=== PATIENT | female | born 1995 | race Caucasian/White ===

== ENCOUNTER 2018-04-12 22:41 | Observation (INO) ==
[2018-04-12] MEDS ORDERED: KETOROLAC TROMETHAMINE 15 MG/ML VIAL IV STA (22:51)
[2018-04-12] MEDS ORDERED: SODIUM CHLORIDE 0.9% 1000ML 1,000 ML IV SCH (23:00)
[2018-04-12 23:12] LABS: Basophils # (auto) 0.02 K/uL (0-0.2); Basophils % (auto) 0.1 %; Eosinophils # (auto) 0.06 K/uL (0-0.5); Eosinophils % (auto) 0.4 %; Hematocrit (blood only) 40.6 % (37-47); Hemoglobin 13.4 g/dL (12.0-16.0); Immature Granulocytes # (auto) 0.04 K/uL (0.00-0.02); Immature Granulocytes % (auto) 0.3 %; Lymphocytes % (auto) 17.4 %; Mean Corpuscular Volume 92.7 fL (80-100); Mean Platelet Volume 10.6 fL (7.4-10.4); Monocytes # (auto) 1.36 K/uL (0.11-0.59); Monocytes % (auto) 9.1 %; Neutrophils # (auto) 10.89 K/uL (1.4-6.5); Neutrophils % (auto) 72.7 %; Platelet Count 241 K/uL (130-400); RDW Standard Deviation 43.9 fL (36.4-46.3); Red Blood Count 4.38 M/uL (4.2-5.4); White Blood Count 14.97 K/uL (4.8-10.8)
[2018-04-12 23:15] LABS: Appearance Urine Turbid (Clear); Bacteria Urine Automated 2+ (Negative); Bilirubin Urine Negative (Negative); Color Urine Yellow; Epithelial Cell Urine Auto >30 /lpf (0-5); Glucose Urine UA Negative (Negative); Ketones Urine Trace (Negative); Leukocyte Esterase Urine 2+ (Negative); Nitrite Urine Negative (Negative); Protein Urine Trace (Negative); Urobilinogen Urine Negative (Negative); WBC Urine Automated >30 /hpf (0-5); pH Urine 5.5 (4.5-7.5)
--- NOTE | 2018-04-12 23:19 | Emergency Department Note ---
History of Present Illness General Chief complaint: Back Injury/Pain Stated complaint: FELL IN SNOW, RT SIDE UPPER BACK PAIN History of Present Illness Maximum Pain Intensity: 7 This 22-year-old presents to the ER complaining of right flank pain and urinary symptoms Location: Abdomen Quality: Aching Severity: Moderate Duration: Past week Timing: Started a week ago Context: Pain persisted and patient came in Modifying factors: better with nothing; worse with movement Patient also complains of urinary symptoms. Patient denies abdominal pain, chest pain, dyspnea, fevers, vomiting, vaginal itching or discharge or vaginal complaints. Home Medications Home Medications Medication Instructions Recorded Confirmed Type No Known Home Medications 04/12/18 04/12/18 History Allergies Allergy/AdvReac Type Severity Reaction Status Date / Time No Known Allergies Allergy Unverified 04/12/18 23:52 Past Med/Surg History Medical History No acute medical problems Social History Feels Safe at Home: Yes Smoking Status: Former smoker Review of Systems All systems reviewed & are unremarkable except as noted in HPI & below Physical Exam Vital Signs Vital Signs - 24 hr 04/12/18 22:43 04/13/18 00:12 Temperature 36.9 C Temperature Source Oral Sepsis Action Taken by Nursing No Action Required Pulse Rate 83 Pulse Rate [Finger] 76 Respiratory Rate 20 18 Respiratory Effort / Characteristics Non-Labored Non-Labored Respiratory Depth Normal Normal Blood Pressure 131/80 Blood Pressure [Right Arm] 113/92 Blood Pressure Mean 97 Blood Pressure Mean [Right Arm] 99 Pulse Oximetry 98 100 Oxygen Delivery Method Room Air Room Air VITALS: Vitals are noted on the nurse's note and reviewed by myself. Vital signs stable. GENERAL: Pleasant female, in no acute distress, nondiaphoretic, well-developed well-nourished. SKIN: The skin was without rashes, erythema, edema, or bruising. There is no tenting of the skin. Capillary reflex less than 2 seconds. HEAD: Normocephalic atraumatic. EARS: External auditory canals clear EYES: Pupils equal round and reactive to light and accommodation. Conjunctivae without injection, sclerae without icterus. Extraocular movements intact. NOSE: Patent, turbinates without inflammation or discharge. MOUTH: Mucous membranes moist. Pharynx without erythema or exudate. Uvula midline. Airway patent. Tongue does not deviate. NECK: Supple without nuchal rigidity. No lymphadenopathy. No thyromegaly. Cervical spine is nontender. No JVD. HEART: Regular rate and rhythm without murmurs gallops or rubs. LUNGS: Clear to auscultation bilaterally without wheezes, rales or rhonchi. No retractions or accessory muscle use. ABDOMEN: Positive bowel sounds x 4. Normal tympanic percussion. Soft, nontender, without masses or organomegaly. Shell sign negative. No guarding or rebound tenderness. Right CVA tenderness MUSCULOSKELETAL: No muscle atrophy, erythema, or edema noted. NEURO: Patient was alert and oriented to person place and time. Normal sensation to light and sharp touch. No focal neurological deficits. Course Administered Medications Ioversol (Optiray 320 100ml) 100 ml IV ONCE PRN PRN Reason: Interaction Checking Stop: 04/17/18 00:49 Last Admin: 04/13/18 00:51 Dose: 93 ml Discontinued Medications Sodium Chloride (Nss 1000ml) 1,000 mls @ 999 mls/hr IV .Q1H1M ANDRES Stop: 04/13/18 00:00 Last Infusion: 04/13/18 00:12 Dose: 0 mls/hr Admin: 04/12/18 23:08 Dose: 999 mls/hr Ceftriaxone Sodium (Rocephin) 1,000 mg in 50 mls @ 100 mls/hr IV NOW STA Stop: 04/12/18 23:54 Last Infusion: 04/13/18 00:12 Dose: 0 mls/hr Admin: 04/12/18 23:46 Dose: 100 mls/hr Ketorolac Tromethamine (Toradol) 10 mg IV NOW STA Stop: 04/12/18 22:52 Last Admin: 04/12/18 23:08 Dose: 10 mg Morphine Sulfate (Morphine Sulfate) 4 mg IV NOW STA Stop: 04/13/18 00:04 Last Admin: 04/13/18 00:08 Dose: 4 mg Ondansetron HCl (Zofran) 4 mg IV NOW STA Stop: 04/13/18 00:04 Last Admin: 04/13/18 00:08 Dose: 4 mg Medical Decision Making Medical Records Attestation: I reviewed the patient's medical records. Home Medications Current Medication List: was personally reviewed by me Laboratory Data Attestation: I reviewed the patient's lab results. Result diagrams: 04/12/18 22:50 04/12/18 22:50 Lab Results 04/12/18 04/12/18 04/12/18 Range/Units 22:50 22:50 23:00 WBC 14.97 H (4.8-10.8) K/uL RBC 4.38 (4.2-5.4) M/uL Hgb 13.4 (12.0-16.0) g/dL Hct 40.6 (37-47) % MCV 92.7 (80-100) fL MCH 30.6 (25-34) pg MCHC 33.0 (32-36) g/dL RDW Std Deviation 43.9 (36.4-46.3) fL RDW Coeff of Woo 13.0 (11.5-14.5) % Plt Count 241 (130-400) K/uL MPV 10.6 H (7.4-10.4) fL Immature Gran % (Auto) 0.3 % Neut % (Auto) 72.7 % Lymph % (Auto) 17.4 % [place] % (Auto) 9.1 % Eos % (Auto) 0.4 % Baso % (Auto) 0.1 % Immature Gran # (Auto) 0.04 H (0.00-0.02) K/uL Neut # (Auto) 10.89 H (1.4-6.5) K/uL Lymph # (Auto) 2.60 (1.2-3.4) K/uL [place] # (Auto) 1.36 H (0.11-0.59) K/uL Eos # (Auto) 0.06 (0-0.5) K/uL Baso # (Auto) 0.02 (0-0.2) K/uL Sodium 138 (136-145) mmol/L Potassium 3.7 (3.5-5.1) mmol/L Chloride 104 (98-107) mmol/L Carbon Dioxide 26 (21-32) mmol/L Anion Gap 8.0 (3-11) BUN 10 (7-18) mg/dl Creatinine 1.06 (0.6-1.2) mg/dl Est Cr Clr Drug Dosing 75.5 ml/min Est GFR ( Amer) 86.9 Est GFR (Non-Af Amer) 75.0 BUN/Creatinine Ratio 9.1 L (10-20) Glucose 92 (70-99) mg/dl Calcium 8.8 (8.5-10.1) mg/dl Total Bilirubin 0.5 (0.2-1) mg/dl AST 15 (15-37) U/L ALT 18 (12-78) U/L Alkaline Phosphatase 91 (45-117) U/L Total Protein 7.6 (6.4-8.2) gm/dl Albumin 4.1 (3.4-5.0) gm/dl Globulin 3.5 (2.5-4.0) gm/dl Albumin/Globulin Ratio 1.2 (0.9-2) Lipase 134 (73-393) U/L Urine Color Urine Appearance (Clear) Urine pH (4.5-7.5) Ur Specific [place] (1.000-1.030) Urine Protein (Negative) Urine Glucose (UA) (Negative) Urine Ketones (Negative) Urine Blood (Negative) Urine Nitrite (Negative) Urine Bilirubin (Negative) Urine Urobilinogen (Negative) Ur Leukocyte Esterase (Negative) Urine WBC (Auto) (0-5) /hpf Urine RBC (Auto) (0-4) /hpf U Hyaline Cast (Auto) (0-5) /lpf U Epithel Cells (Auto) (0-5) /lpf Urine Bacteria (Auto) (Negative) Urine Crystals Calcium Oxalate Crystal (None Prsent) POC Ur Test NEG (NEG) 04/12/18 Range/Units 23:00 WBC (4.8-10.8) K/uL RBC (4.2-5.4) M/uL Hgb (12.0-16.0) g/dL Hct (37-47) % MCV (80-100) fL MCH (25-34) pg MCHC (32-36) g/dL RDW Std Deviation (36.4-46.3) fL RDW Coeff of Woo (11.5-14.5) % Plt Count (130-400) K/uL MPV (7.4-10.4) fL Immature Gran % (Auto) % Neut % (Auto) % Lymph % (Auto) % [place] % (Auto) % Eos % (Auto) % Baso % (Auto) % Immature Gran # (Auto) (0.00-0.02) K/uL Neut # (Auto) (1.4-6.5) K/uL Lymph # (Auto) (1.2-3.4) K/uL [place] # (Auto) (0.11-0.59) K/uL Eos # (Auto) (0-0.5) K/uL Baso # (Auto) (0-0.2) K/uL Sodium (136-145) mmol/L Potassium (3.5-5.1) mmol/L Chloride (98-107) mmol/L Carbon Dioxide (21-32) mmol/L Anion Gap (3-11) BUN (7-18) mg/dl Creatinine (0.6-1.2) mg/dl Est Cr Clr Drug Dosing ml/min Est GFR ( Amer) Est GFR (Non-Af Amer) BUN/Creatinine Ratio (10-20) Glucose (70-99) mg/dl Calcium (8.5-10.1) mg/dl Total Bilirubin (0.2-1) mg/dl AST (15-37) U/L ALT (12-78) U/L Alkaline Phosphatase (45-117) U/L Total Protein (6.4-8.2) gm/dl Albumin (3.4-5.0) gm/dl Globulin (2.5-4.0) gm/dl Albumin/Globulin Ratio (0.9-2) Lipase (73-393) U/L Urine Color Yellow Urine Appearance Turbid H (Clear) Urine pH 5.5 (4.5-7.5) Ur Specific [place] 1.030 (1.000-1.030) Urine Protein Trace H (Negative) Urine Glucose (UA) Negative (Negative) Urine Ketones Trace H (Negative) Urine Blood 2+ H (Negative) Urine Nitrite Negative (Negative) Urine Bilirubin Negative (Negative) Urine Urobilinogen Negative (Negative) Ur Leukocyte Esterase 2+ H (Negative) Urine WBC (Auto) >30 H (0-5) /hpf Urine RBC (Auto) 5-10 H (0-4) /hpf U Hyaline Cast (Auto) 1-5 (0-5) /lpf U Epithel Cells (Auto) >30 H (0-5) /lpf Urine Bacteria (Auto) 2+ H (Negative) Urine Crystals Not Reportable Calcium Oxalate Crystal Present H (None Prsent) POC Ur Test (NEG) MDM Narrative Prior records/ancillary studies reviewed. Triage Nursing notes reviewed. Additional history obtained from family. The patient's history was concerning for abdominal pain. Differential diagnosis: Etiologies such as appendicitis, diverticulitis, PUD, biliary pathology, UTI, pancreatitis, obstruction, mesenteric ischemia, aortic pathology, infections, inflammatory bowel disease, renal colic, as well as others were entertained. Physical examination findings: As above. ER treatment provided: IV fluids, Toradol IV, Rocephin, morphine, Zofran IV On reassessment the patient felt better. Diagnostics interpreted by me: The labs revealed urine concerning for infection and sent for culture Leukocytosis, negative hCG Imaging studies: CT ABDOMEN & PELVIS With Contrast: 2 mm right UVJ stone with moderate hydronephrosis and delayed right nephrogram indicating active obstruction. No evidence for pyelonephritis or abscess. Normal appendix. Radiologist: Roberto Tan MD US RENAL: Moderate right hydroureteronephrosis. Correlate with CT. Multiple left renal stones may be present. No hydronephrosis. Radiologist: Roberto Tan MD I have obtained information from the sister who provides some of the history. Consultation: A consultation was placed with the hospitalist, Dr. Del Toro. The case was discussed and diagnostics were reviewed. The patient was evaluated in the ER for further treatment. Exam and history seem consistent with pyelonephritis with infected ureteral stone. Repeat abdominal exam is benign. Patient's urine is infected. She has right CVA tenderness. She has a ureteral stone on CAT scan. She was given antibiotics. Medicine was consulted for admission. Patient is agreeable. By the evaluation outlined above emergent etiologies such as appendicitis, diverticulitis, PUD, biliary pathology, pancreatitis, obstruction, mesenteric ischemia, aortic pathology, inflammatory bowel disease, as well as others were deemed relatively unlikely. The pt informed about the findings as listed above. All questions were answered and pleased with the treatment. Case reviewed with my attending The chart was completed utilizing [employer] voice recognition software. Grammatical errors, random word insertions, pronoun errors, and incomplete sentences are an occassional consequence of this system due to software limitations, ambient noise, and hardware issues. Any formal questions or concerns about the content, text, or information contained within the body of this dictation should be directly addressed to the physician assistant printer floor covering for clarification. Impression & Plan Pyelonephritis, Right ureteral stone Discharge Plan Visit Data Chief Complaint: Back Injury/Pain Stated Complaint: FELL IN SNOW, RT SIDE UPPER BACK PAIN ED Provider: Juan Mane ED Midlevel Provider: Joyce Mccray Discharge Problem: Pyelonephritis, Right ureteral stone Patient Disposition: Being Evaluated by Hospitalist Condition: Good Forms Stand Alone Forms: [employer] Prescriptions Prescriptions: No Action No Known Home Medications RF: 0 Referrals Referrals: PCP,NO [Primary Care Provider] -
[2018-04-12] MEDS ORDERED: cefTRIAXone SODIUM 1,000 MG/50 ML BAG IV STA (23:25)
[2018-04-12 23:29] LABS: Calcium Oxalate Crystals Urine Present (None Prsent)
[2018-04-12 23:30] LABS: Albumin Level 4.1 gm/dl (3.4-5.0); BUN Creatinine Ratio 9.1 (10-20); Calcium 8.8 mg/dl (8.5-10.1); Creatinine Clr Calc Pharmacy 75.5 ml/min; Est GFR (African American) 86.9; Potassium 3.7 mmol/L (3.5-5.1)
[2018-04-12 23:33] LABS: Albumin Globulin Ratio 1.2 (0.9-2); Bilirubin,Total 0.5 mg/dl (0.2-1); Globulin 3.5 gm/dl (2.5-4.0); Total Protein 7.6 gm/dl (6.4-8.2)
[2018-04-13] MEDS ORDERED: ONDANSETRON INJ 2 MG/ML 2 ML VIAL IV STA (00:03)
[2018-04-13] MEDS ORDERED: MoRPHine SULFATE 4 MG/ML 1 ML CARP\\VIAL IV STA (00:03)
[2018-04-13] MEDS ORDERED: IOVERSOL 100ml IV PRN (00:50)
[2018-04-13] MEDS ORDERED: ACETAMINOPHEN 1000 MG/100 ML IV IV STA (01:08)
--- NOTE | 2018-04-13 02:24 | History & Physical Report ---
Date of Service April 13, 2018 Assessment & Plan (1) Right ureteral stone: Patient with 2mm right UVJ stone. +UA. No pyelonephritis noted on CT. Patient afebrile, hemodynamically stable. Pain and nausea well controlled at present -Admit to medical floor -NPO for now -Pain control with Toradol and Morphine PRN -Nausea control with Zofran PRN -Flomax -IVF - NSS at 125mL/hr -Strain urine -Ceftriaxone 1gm IV daily -Urology consultation - appreciate assistance with this case (2) UTI (urinary tract infection): Plan as above. -Follow urine culture -Ceftriaxone 1gm IV daily F/E/N - NSS at 125mL/hr, monitor electrolytes, renal function intact, NPO for now. 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 Patient reports having right flank pain for the last 1.5 weeks. UTI symptoms over the last 2-3 days to include increased urinary frequency/urgency and dysuria. No fevers but chills. Nausea. ER Course: Toradol 10mg IV, HSS, Ceftriaxone, Morphine, Zofran, Tylenol Allergies Allergy/AdvReac Type Severity Reaction Status Date / Time No Known Allergies Allergy Unverified 04/12/18 23:52 Home Medications Home Medications Medication Instructions Recorded Confirmed Type No Known Home Medications 04/12/18 04/12/18 History Past Med/Surg History Medical History No acute medical problems Social History Feels Safe at Home: Yes Smoking Status: Former smoker Hx Alcohol Use: Yes Review of Systems All systems reviewed & are unremarkable except as noted in HPI & below Physical Exam 2 Vital Signs (Past 24 Hours): Last Vital Signs Temp 36.9 C 04/12/18 22:43 Pulse 76 04/13/18 00:12 Resp 18 04/13/18 00:12 BP 113/92 04/13/18 00:12 Pulse Ox 100 04/13/18 00:12 Physical Exam: General: patient resting comfortably, NAD, non-toxic in appearance, AA&O x 4 Skin: warm, dry, intact, no rashes or lesions HEENT: NC/AT, PERRL, EOMI, anicteric sclera, conjunctiva without injection, external ear normal to inspection and nontender, nares patent, moist mucus membranes, dentition intact, no oropharyngeal lesions, neck supple, trachea midline, no LAD, no thyromegaly, no JVD Heart: +S1/S2, regular, no m/r/g Lungs: equal air entry bilaterally, no rales/rhonchi/wheezes Abd: +BS, soft, NT/ND, no masses/organomegaly/ascites, right flank pain with CVA tenderness Ext: warm, 2+ pulses in UE/LE bilaterally, no clubbing/cyanosis or edema Neuro: nonfocal, patient AA&O x 4, speech intact, no facial droop, moving all extremities on command with equal strength 5/5 Results & Data Laboratory Results Lab Results 04/12/18 04/12/18 04/12/18 Range/Units 22:50 22:50 23:00 WBC 14.97 H (4.8-10.8) K/uL RBC 4.38 (4.2-5.4) M/uL Hgb 13.4 (12.0-16.0) g/dL Hct 40.6 (37-47) % MCV 92.7 (80-100) fL MCH 30.6 (25-34) pg MCHC 33.0 (32-36) g/dL RDW Std Deviation 43.9 (36.4-46.3) fL RDW Coeff of Woo 13.0 (11.5-14.5) % Plt Count 241 (130-400) K/uL MPV 10.6 H (7.4-10.4) fL Immature Gran % (Auto) 0.3 % Neut % (Auto) 72.7 % Lymph % (Auto) 17.4 % [place] % (Auto) 9.1 % Eos % (Auto) 0.4 % Baso % (Auto) 0.1 % Immature Gran # (Auto) 0.04 H (0.00-0.02) K/uL Neut # (Auto) 10.89 H (1.4-6.5) K/uL Lymph # (Auto) 2.60 (1.2-3.4) K/uL [place] # (Auto) 1.36 H (0.11-0.59) K/uL Eos # (Auto) 0.06 (0-0.5) K/uL Baso # (Auto) 0.02 (0-0.2) K/uL Sodium 138 (136-145) mmol/L Potassium 3.7 (3.5-5.1) mmol/L Chloride 104 (98-107) mmol/L Carbon Dioxide 26 (21-32) mmol/L Anion Gap 8.0 (3-11) BUN 10 (7-18) mg/dl Creatinine 1.06 (0.6-1.2) mg/dl Est Cr Clr Drug Dosing 75.5 ml/min Est GFR ( Amer) 86.9 Est GFR (Non-Af Amer) 75.0 BUN/Creatinine Ratio 9.1 L (10-20) Glucose 92 (70-99) mg/dl Calcium 8.8 (8.5-10.1) mg/dl Total Bilirubin 0.5 (0.2-1) mg/dl AST 15 (15-37) U/L ALT 18 (12-78) U/L Alkaline Phosphatase 91 (45-117) U/L Total Protein 7.6 (6.4-8.2) gm/dl Albumin 4.1 (3.4-5.0) gm/dl Globulin 3.5 (2.5-4.0) gm/dl Albumin/Globulin Ratio 1.2 (0.9-2) Lipase 134 (73-393) U/L Urine Color Urine Appearance (Clear) Urine pH (4.5-7.5) Ur Specific [place] (1.000-1.030) Urine Protein (Negative) Urine Glucose (UA) (Negative) Urine Ketones (Negative) Urine Blood (Negative) Urine Nitrite (Negative) Urine Bilirubin (Negative) Urine Urobilinogen (Negative) Ur Leukocyte Esterase (Negative) Urine WBC (Auto) (0-5) /hpf Urine RBC (Auto) (0-4) /hpf U Hyaline Cast (Auto) (0-5) /lpf U Epithel Cells (Auto) (0-5) /lpf Urine Bacteria (Auto) (Negative) Urine Crystals Calcium Oxalate Crystal (None Prsent) POC Ur Test NEG (NEG) 04/12/18 Range/Units 23:00 WBC (4.8-10.8) K/uL RBC (4.2-5.4) M/uL Hgb (12.0-16.0) g/dL Hct (37-47) % MCV (80-100) fL MCH (25-34) pg MCHC (32-36) g/dL RDW Std Deviation (36.4-46.3) fL RDW Coeff of [place] (11.5-14.5) % Plt Count (130-400) K/uL MPV (7.4-10.4) fL Immature Gran % (Auto) % Neut % (Auto) % Lymph % (Auto) % [place] % (Auto) % Eos % (Auto) % Baso % (Auto) % Immature Gran # (Auto) (0.00-0.02) K/uL Neut # (Auto) (1.4-6.5) K/uL Lymph # (Auto) (1.2-3.4) K/uL [place] # (Auto) (0.11-0.59) K/uL Eos # (Auto) (0-0.5) K/uL Baso # (Auto) (0-0.2) K/uL Sodium (136-145) mmol/L Potassium (3.5-5.1) mmol/L Chloride (98-107) mmol/L Carbon Dioxide (21-32) mmol/L Anion Gap (3-11) BUN (7-18) mg/dl Creatinine (0.6-1.2) mg/dl Est Cr Clr Drug Dosing ml/min Est GFR ( Amer) Est GFR (Non-Af Amer) BUN/Creatinine Ratio (10-20) Glucose (70-99) mg/dl Calcium (8.5-10.1) mg/dl Total Bilirubin (0.2-1) mg/dl AST (15-37) U/L ALT (12-78) U/L Alkaline Phosphatase (45-117) U/L Total Protein (6.4-8.2) gm/dl Albumin (3.4-5.0) gm/dl Globulin (2.5-4.0) gm/dl Albumin/Globulin Ratio (0.9-2) Lipase (73-393) U/L Urine Color Yellow Urine Appearance Turbid H (Clear) Urine pH 5.5 (4.5-7.5) Ur Specific [place] 1.030 (1.000-1.030) Urine Protein Trace H (Negative) Urine Glucose (UA) Negative (Negative) Urine Ketones Trace H (Negative) Urine Blood 2+ H (Negative) Urine Nitrite Negative (Negative) Urine Bilirubin Negative (Negative) Urine Urobilinogen Negative (Negative) Ur Leukocyte Esterase 2+ H (Negative) Urine WBC (Auto) >30 H (0-5) /hpf Urine RBC (Auto) 5-10 H (0-4) /hpf U Hyaline Cast (Auto) 1-5 (0-5) /lpf U Epithel Cells (Auto) >30 H (0-5) /lpf Urine Bacteria (Auto) 2+ H (Negative) Urine Crystals Not Reportable Calcium Oxalate Crystal Present H (None Prsent) POC Ur Test (NEG) Diagnostic Findings CT ABDOMEN AND PELVIS WITH CONTRAST: 2mm right UVJ stone with moderate hydronephrosis and delayed right nephrogram indicating active obstruction. no evidence for pyelonephritis or abscess. Normal appendix. Code Status & VTE Plan Code Status full Critical Care Time Critical Care Time: No _ (1) UTI (urinary tract infection) Urinary tract infection type: site unspecified Hematuria presence: with hematuria Qualified Code(s): N39.0 - Urinary tract infection, site not specified; R31.9 - Hematuria, unspecified
[2018-04-13] MEDS ORDERED: ACETAMINOPHEN 325 MG TAB PO PRN (03:45)
[2018-04-13] MEDS ORDERED: DOCUSATE SODIUM 100 MG CAP PO PRN (03:45)
[2018-04-13] MEDS ORDERED: MoRPHine SULFATE 4 MG/ML 1 ML CARP\\VIAL IV PRN (03:45)
[2018-04-13] MEDS ORDERED: ONDANSETRON INJ 2 MG/ML 2 ML VIAL IV PRN (03:45)
[2018-04-13] MEDS: SODIUM CHLORIDE 0.9% 1000ML 1,000 ML IV SCH ×2 (03:59→14:13)
[2018-04-13] MEDS: KETOROLAC TROMETHAMINE 15 MG/ML VIAL IV PRN ×2 (04:01→09:59)
--- NOTE | 2018-04-13 06:53 | Ultrasound Report ---
US renal/blad retro comp HISTORY: Flank pain right flank pain, ? stone/infx COMPARISON: None. FINDINGS: Right kidney: Moderate hydronephrosis and hydroureter. Maximum linear dimension 10.7 cm. Normal corti comedullary differentiation and cortical thickness. Left kidney: Maximum dimension 9.2 cm. No evidence for hydronephrosis. Several minute nonobstructing cortical calcifications. Normal corticomedullary differentiation and cortical thickness. Bladder: No bladder wall thickening. The bilateral ureteral jets were identified. IMPRESSION: 1. Right renal hydroureteronephrosis.. 2. Several punctate nonobstructing left renal calcifications. The above report was generated using voice recognition software. It may contain grammatical, syntax or spelling errors. Electronically signed by: Jorge Lopez M.D. 04/13/2018 6:51 AM
[2018-04-13] MEDS ORDERED: INFLUENZA VIRUS QUAD VACCINE 0.5 ML SYR IM ONE (07:00)
[2018-04-13] MEDS ORDERED: INFLUENZA ADMINISTRATION CHARGE ONE (07:00)
--- NOTE | 2018-04-13 07:29 | CT Scan Report ---
ABDOMEN AND PELVIS CT WITH IV CONTRAST CT DOSE: 269.11 mGy.cm HISTORY: right flank pain, UTI, ? pyelo/abscess/stone TECHNIQUE: Multiaxial CT images of the abdomen and pelvis were performed following the use of intrave nous contrast. A dose lowering technique was utilized adhering to the principles of ALARA. COMPARISON STUDY: Renal ultrasound 04/12/2018. FINDINGS: The lung bases are clear. No fractures within the visualized osseous structures. Mild perip ortal edema. This could be due to overhydration. No hepatic or splenic masses. The adrenal glands, ga llbladder, and left kidney are unremarkable. Delayed right nephrogram and moderate right hydrouretero nephrosis secondary to an obstructing 3 mm stone within the distal right ureter best seen on image 35 1. There is also mild right perinephric edema. No renal calculi. No retroperitoneal lymphadenopathy. The bladder is decompressed and not well visualized. The uterus and ovaries are within normal limits. No bowel wall thickening or obstruction. Normal appendix. IMPRESSION: A 3 mm obstructing stone within the distal right ureter resulting in moderate right hydroureteronephr osis. Electronically signed by: Enoch Cantu M.D. 04/13/2018 7:27 AM
[2018-04-13 08:30] LABS: BUN Creatinine Ratio 6.9 (10-20); Creatinine Clr Calc Pharmacy 63.6 ml/min; Est GFR (African American) 70.5; Est GFR (Non-African American) 60.9; Potassium 3.9 mmol/L (3.5-5.1)
[2018-04-13] MEDS ORDERED: TAMSULOSIN HCL 0.4 MG CAP PO SCH (09:00)
--- NOTE | 2018-04-13 09:29 | Urology Consultation ---
Date of Consultation April 13, 2018 Assessment & Plan (1) Right ureteral stone: Distal right 3mm stone with resulting hydronephrosis. UC&S pending patient remains on Ceftriaxone. Patient is healthy appearing, afebrile. She would like to avoid a stent. Discussed if temp >101F should develop she will require emergent stent placement , patient voices understanding. Continue Flomax, push PO intake, strain all urine. Continue pain control. Continue antibiotics. Will coordinate close outpatient URO follow up next week with repeat KUB to assess stone progression. Likely candidate for outpatient ESWL if stone persists. Thank you for allowing us to participate in the care of this patient. Please contact our service with change in patient status. History of Present Illness Reason for Consultation: Distal ureteral stone Attending Physician: Gina Du MD History of Present Illness 22 YO female with distal R ureteral stone. Patient reports abdominal/flank pain x 1 week, increasing in severity last night bringing her to the ER. CT abdomen & pelvis reviewed: 2-3mm stone in distal R ureter with resulting hydronephrosis. UA ? infection, C&S pending. Patient is afebrile and Cr WNL. Patient resting comfortably upon entry to room. Patient has never seen a urologist, this is her first stone. States that pain is well controlled with medication. Denies fever/chills. +Intermittent nasuea. Voiding spontaneously without difficulty +some sediment +frequency. Allergies Allergy/AdvReac Type Severity Reaction Status Date / Time No Known Allergies Allergy Unverified 04/12/18 23:52 Home Medications Home Medications Medication Instructions Recorded Confirmed Type No Known Home Medications 04/12/18 04/12/18 History Patient History Medical History No acute medical problems Social History Current Living Situation: Other Current Living Situation Comment: roomates Other Information That Helps Us Care for You: No Feels Safe at Home: Yes Safety Concerns: Feels Safe At This Time Smoking Status: Current some day smoker Tobacco Cessation Education Requested by Patient: No Hx Alcohol Use: Yes Alcohol Intake Frequency: a few times a week Beliefs That Will Affect Care: None Preferred Language: Yoruba Communication Ability: Effective [employer] Social Studies Tutor Required: No Review of Systems Constitutional: no fever and no chills Eyes: no problem reported Respiratory: no dyspnea Cardiovascular: no chest pain Gastrointestinal: + abdominal pain and + nausea; no bloating and no vomiting Genitourinary (Female): + urinary frequency; no dysuria and no difficulty urinating Musculoskeletal: + back pain Integumentary: no problem reported Neurologic: no tingling and no numbness Psychiatric: no problem reported Physical Exam 2 Vital Signs (Past 24 Hours): Last Vital Signs Temp 36.4 C L 04/13/18 07:32 Pulse 61 04/13/18 07:32 Resp 16 04/13/18 07:32 BP 118/75 04/13/18 07:32 Pulse Ox 98 04/13/18 07:32 Constitutional: WD/WN, vitals as above healthy appearing Neck: normal visual inspection Respiratory: normal respiratory effort; does not use accessory muscles Cardiovascular: Vessels: no JVD Gastrointestinal (Abdomen): Inspection/Auscultation: abdomen not distended Percussion/Palpation: + abdomen tender and abdomen soft; no guarding Psychiatric: A+Ox3, euthymic affect Genitourinary: Speculum/Bimanual Exam: bladder normal to palpation
--- NOTE | 2018-04-13 15:52 | Discharge Summary ---
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 Patient reports having right flank pain for the last 1.5 weeks. UTI symptoms over the last 2-3 days to include increased urinary frequency/urgency and dysuria. No fevers but chills. Nausea. ER Course: Toradol 10mg IV, HSS, Ceftriaxone, Morphine, Zofran, Tylenol Principal Diagnosis Right ureterolithiasis with hydronephrosis, UTI Discharge Exam Constitutional WD/WN, vitals as above Eyes PERRL, conjunctivae normal, anicteric sclerae ENMT external ear and nose normal, oropharynx normal Neck trachea midline, no thyromegaly Respiratory normal respiratory effort, lungs clear to auscultation Cardiovascular RRR, no murmur, no edema Gastrointestinal (Abdomen) normal bowel sounds, soft, nontender, no hepatosplenomegaly Percussion/Palpation: + abdomen tender (Positive right CVA tenderness) Musculoskeletal Extremities: extremities normal to inspection; no cyanosis and no clubbing Skin no rashes, warm and dry Neurologic moves all extremities and awake; no focal motor deficits Psychiatric A+Ox3, euthymic affect Discharge Data Allergies Allergy/AdvReac Type Severity Reaction Status Date / Time No Known Allergies Allergy Unverified 04/12/18 23:52 Consultations Urology Ordered Studies 04/12/18 22:51 US renal/blad retro comp Urgent 04/12/18 23:57 CT abd pelvis IV con only Urgent Hospital Course (1) Right ureteral stone: Patient with 3mm right UVJ stone. +UA for UTI. No pyelonephritis noted on CT. Patient afebrile, hemodynamically stable. Pain and nausea well controlled at the time of discharge. Seen by urology and decided to do conservative management with maximal expulsive therapy. She will drink plenty of fluids, take Flomax daily, take ibuprofen and/or Percocet as needed for pain -She will follow-up with a [facility] and urology next week. She will continue the Cipro as below for UTI. -She was treated here with copious IV fluids. She was tolerating p.o. at the time of discharge and remained afebrile. If she develops a fever at home or worsening pain, she was instructed to return to the hospital right away for possible ureteral stent placement. (2) UTI (urinary tract infection): Urinalysis was abnormal, urine culture was pending at the time of discharge She was treated with IV Rocephin x1 dose and will be sent home with a 10-day course of Cipro 500 mg p.o. twice daily Urine culture results will need to be followed up on by urology or PCP at the time of office follow-up. Patient was instructed to return if she develops fever, worsening back pain, nausea/vomiting, or persistent or worsening dysuria/urinary urgency or frequency. Disposition-stable for discharge to home Total Time Total Time Spent Total Time Spent (In Minutes): Greater than 30 minutes Total Time Includes: Examination of the Patient, Discharge Planning and Medication Reconciliation Discharge Plan Discharge Items Patient Disposition: Home - Self-Care Reason For Visit: RENAL STONE Discharge Diagnosis: Kidney stone, UTI Condition: Good Discharge Goals: Decrease discomfort, Diagnostic testing, Improve disease control and Therapeutic intervention Activity: Resume your previous activity Lifting: Gradually increase as tolerated Bathing: No limitations Exercise/Sports: Gradually increase as tolerated Driving/Machine Use: No limitations Driving/Machine Use Comment: But do not drive if taking oxycodone Non-emergency contact: Primary Care Provider and Urologist Call non-emergency contact if: you have any medication questions, your symptoms worsen, your pain is not controlled, your pain is worsening, your pain is unusual for you, your pain is concerning for you, you have a fever and your temperature is above 101 Follow-up/Referrals: Armen De Los Santos MD [Surgeon] - 04/18/18 10:40 am (Please, follow up at [facility] with Dr. Armen De Los Santos on MondayApril 18 at 11:00 am (arrive 10:40 am). *This office is located at [address] [facility] [facility] [address] [facility] in [place]. If you need to change this appointment, call the office at [phone].) Andrew Varela MD [Primary Care Provider] - 04/16/18 11:00 am (Please, follow up at [facility] with Dr. Andrew Varela on MondayApril 16 at 11:00 am. *If you need to change this appointment, call the clinic at [phone].) Diet: Regular Addtl Provider Instructions: You were admitted for a kidney stone. He also have urinary tract infection. Please finish out the antibiotics. Follow-up with the urologist as scheduled and get your x-ray prior to that. Please take the tamsulosin to help you pass your stone. Drink plenty of fluids and can take the pain medicine as needed. Please follow-up with the primary care physician [facility] as scheduled for you. Prescriptions: New tamsulosin 0.4 mg Capsule 0.4 mg PO QAM Qty: 7 RF: 0 ciprofloxacin HCl [Cipro] 500 mg tablet 500 mg PO BID Qty: 20 RF: 0 ibuprofen 800 mg tablet 800 mg PO TID PRN (Reason: pain) Qty: 30 RF: 0 oxycodone-acetaminophen 5-325 mg tablet 1 tab PO Q6H PRN (Reason: pain) Qty: 8 RF: 0 No Action No Known Home Medications RF: 0 Stand-Alone Forms: [facility] Discharge Orders: Discharge Order (Routine); Ordered 04/13/18 Ordered By: Gina Du Admission Data Admit Date/Time: 04/13/18 03:40 Attending Provider: Gina Du Admit Provider: Anastasia Del Toro Primary Care Provider: Andrew Varela Other Providers: Anastasia Del Toro ; Edin White ; Melvin Duarte ; Armen De Los Santos I. ; Reji Ngo ; Coby Moore ; Alec Baer II ; Angela Patrick Service: Surgical Services Other Pending Studies at Discharge: Yes Studies:: Urine culture--> your doctor can follow up on this final result for you at your appointment
[2018-04-13] MEDS ORDERED: cefTRIAXone SODIUM 1,000 MG in DEXTROSE 5% 50 ML IV SCH (22:00)
== END 2018-04-13 16:35 | disposition home or self-care (01) ==
LOC: 3N 22:41 → ED 22:41 → 3N 04-13 03:11 → SUATTDRO 04-13 03:40